=== PATIENT | male | born 1975 | race Caucasian/White ===

== ENCOUNTER 2019-06-12 19:44 | Emergency (ER) | payer SELFPAY ==
[2019-06-12 19:45] VITALS: BP 143/87; PULSE 92; RESP 16; TEMP 36.8; O2SAT 98; BMI 34.4
--- NOTE | 2019-06-12 19:53 | ED.DCSUM_ITS ---
History of Present Illness Chief Complaint: Lower Extremity Injury Informant: Patient Onset: Yesterday Narrative: Patient states that last evening he went for a walk. When he returned home began to have discomfort in the proximal anterior left thigh/hip. He states he was unable to get much sleep because of the pain. He was taking Advil. He reports whenever he moves the hip he has pain. He denies any abdominal pain. No urinary or bowel symptoms. He denies any known injury. No rashes. Past Medical History - Allergies and Home Meds Allergies/Adverse Reactions: Allergies No Known Allergies Allergy (Verified 06/12/19 19:45) Primary Care Physician: Care Physician,No Primary [Primary Care Provider] - Smoking Status: Current every day smoker Review of Systems General: Denies: Chills, Fever, Sweats Eyes: Denies: Visual changes - bilaterally, Diplopia ENT: Denies: Rhinorrhea, Sore throat Cardiovascular: Denies: Chest pain, Palpitations Respiratory: Denies: Dyspnea, Cough, Dyspnea on exertion Gastrointestinal: Denies: Abdominal pain, Nausea, Vomiting, Diarrhea, Melena, Hematochezia Genitourinary: Denies: Dysuria, Hematuria, Frequency Musculoskeletal: Reports: Extremity Pain. Denies: Back pain Skin: Denies: Rash, Wounds Neurological: Denies: Headache, Weakness, Numbness Physical Exam Vital Signs/Narrative: Vital Signs Temp Pulse Resp BP Pulse Ox 06/12/19 19:45 98.2 F 92 16 143/87 H 98 Inital Vital Signs reviewed: Yes General: Well nourished, Well developed, No Acute Distress Head: Normocephalic, Atraumatic Eyes: Perrl, EOMI ENT: Moist mucous membranes, No rhinorrhea Neck: Supple, Nontender Cardiovascular: Regular rate, Regular rhythm, No murmurs Respiratory: No distress, CTA bilaterally, Chest nontender Abdomen: Soft, Nontender, Nondistended, Normal bowel sounds Back: Nontender, Normal Inspection Extremities: No edema, Tenderness - Patient has tenderness over the left anterior proximal quadricep up onto his tendon to the AIIS and reports pain at the ASIS also. He do not see any rashes. No ecchymosis. Reports pain with any type of motion at the hip joint. Skin: Normal color, No rash Neurological: Alert, Oriented x3, Cranial nerves II-XII grossly intact, Normal Strength, Normal Sensation Psychological: Normal affect, Normal Mood Diagnostic/Tx/Re-eval - Medical Decision Making X-rays of the hip and pelvis were negative. Clinically the patient has tenderness along the quadriceps tendon. I think this is most likely a tendinitis picture. We will do anti-inflammatories I will write for a few pain medication. If is not improving follow-up with orthopedics. ED Disposition - Plan for ED Patient: Disposition: Home or Assisted Living Diagnosis: Tendinitis of left quadriceps tendon Prescriptions: Prednisone [Deltasone] 40 mg PO DAILY #10 tab Transmission Status: Pending to [facility] Ibuprofen [Motrin] 800 mg PO TID PRN PRN #20 tab PRN Reason: Pain Or Fever Transmission Status: Pending to [facility] Hydrocodone Bitart/Apap 5-325 [[place] 5MG-325MG] 1 tablet PO Q6H PRN PRN 3 Days #12 tablet PRN Reason: Pain Transmission Status: Sent to [facility] Referrals: Guanaco Salazar MD [STAFF PHYSICIAN] - 1 Week if not improving
--- NOTE | 2019-06-12 20:03 | RAD_ITS ---
STUDY: X-RAY - PELVIS AND LEFT HIP REASON FOR EXAM: Male, 43 years old. HIP PAIN SINCE YESTERDAY -- NO KNOWN INJURY TECHNIQUE: 3 views of the pelvis and hip. COMPARISON: None. FINDINGS: There is a non-specific bowel gas pattern. Normal visualized soft tissue structures. Normal bilateral iliac wings, sacroiliac joints and visualized sacrum. Normal bilateral superior and inferior pubic rami. Normal pubic symphysis. Normal bilateral ischial tuberosities. Normal visualized femoral head. Normal acetabulum. Normal hip joint. RAD/HIP, UNI W/ Pelvis 2-3 Views IMPRESSION: Normal x-ray examination of the pelvis and hip. Electronically Signed: Raeann Young MD at 20:25 EDT , Service support ,
== END 2019-06-12 20:35 | disposition home or self-care (01) ==
PROVIDERS: Emergency Provider Emergency Medicine
DX: M76.892 Other specified enthesopathies of left lower limb, excluding foot (principal); F17.200 Nicotine dependence, unspecified, uncomplicated
CPT/HCPCS: 73502; 99281; 99282

== ENCOUNTER 2019-07-01 17:12 | Emergency (ER) | payer SELFPAY ==
[2019-07-01 17:13] VITALS: BP 133/90; PULSE 102; RESP 22; TEMP 36.7; O2SAT 97; BMI 33.3
--- NOTE | 2019-07-01 17:28 | ED.DCSUM_ITS ---
- ER Visit Summary Date of Service: 07/01/19 Chief Complaint: Back pain History of Present Illness: The patient is a 43 M who presents with back pain that is been getting worse over the past 1-1/2 weeks. Patient denies any trauma or injury. Patient states the pain is been constant. Patient describes the pain as aching. Patient states pain is over the lower lumbar area. Patient states the pain is worse with movement. Patient denies any radiation to the lower extremities. Patient denies any paresthesias or weakness. Patient denies any bowel or bladder changes. Patient denies any saddle anesthesia. Physical Examination: Vital signs are stable. Patient is afebrile. Patient is in no acute distress. Musculoskeletal exam reveals tenderness and mild spasm of the lumbar paraspinal muscles. There is no midline tenderness. There is no edema or ecchymosis. There is no bony crepitance or step-off. Range of motion was slightly limited in all motion secondary to pain. Strength is 5/5 bilateral in lower extremities. Deep tendon reflexes are 2+/4 bilaterally in the lower extremities. There are no sensory deficits noted. Straight leg raises were negative bilaterally. Emergency Department Course and Treatment: Patient was given injections of Toradol and Norflex here. Patient was given prescription for Naprosyn and Flexeril. Patient was instructed to use ice to the area. Patient was referred to a primary care physician for follow-up care and further evaluation of his pain. Patient understood and was agreeable with the plan. All questions were answered. Disposition: Discharge home Impression: Lumbosacral strain This note was generated with [employer] dictation software. It may contain incorrect words, spelling, and punctuation that were not noted in review of the chart prior to signing ED Disposition - Plan for ED Patient: Disposition: Home or Assisted Living Diagnosis: Lumbosacral strain Instructions: ED LUMBAR SPRAIN/STRAIN Prescriptions: cycloBENZAPRine HCl [Flexeril] 10 mg PO QHS PRN PRN #20 tab PRN Reason: Muscle Spasm Prescription Printed Naproxen [Naprosyn] 500 mg PO BID PRN #20 tab Prescription Printed Referrals: Care Physician,No Primary [Primary Care Provider] - Marium Rosenberg MD [STAFF PHYSICIAN] - 5-7 Days
[2019-07-01] MEDS: Ketorolac 60 MG/2 ML Vial IM (17:34)
[2019-07-01] MEDS: Orphenadrine 60 MG/2 ML Ampul IM (17:34)
[2019-07-01 18:24] VITALS: BP 162/80; PULSE 62; RESP 18; O2SAT 97
== END 2019-07-01 18:25 | disposition home or self-care (01) ==
PROVIDERS: Emergency Provider Emergency Medicine
DX: S39.012A Strain of muscle, fascia and tendon of lower back, initial encounter (principal); F17.200 Nicotine dependence, unspecified, uncomplicated; E11.9 Type 2 diabetes mellitus without complications; X58.XXXA Exposure to other specified factors, initial encounter; Z79.84 Long term (current) use of oral hypoglycemic drugs
CPT/HCPCS: 96372; 99282

== ENCOUNTER 2019-07-03 11:14 | Emergency (ER) | payer SELFPAY ==
[2019-07-03] VITALS (7 sets, daily range): BP systolic 131–152; BP diastolic 77–112; PULSE 82–108; RESP 17–24; TEMP 36.2–36.6; O2SAT 92–97; BMI 33.4
--- NOTE | 2019-07-03 11:53 | EKG12_ITS ---
Test Reason : SOB Blood Pressure : / mmHG Vent. Rate : 082 BPM Atrial Rate : 082 BPM P-R Int : 122 ms QRS Dur : 086 ms QT Int : 376 ms P-R-T Axes : 038 007 009 degrees QTc Int : 439 ms Normal sinus rhythm Normal ECG Confirmed by NIURKA GUEVARA MD ([id number]), business editor GABRIELA MISHRA ([id number]) on 07/05/2019 12:52:57 PM Referred By: ZAKI Confirmed By:NIURKA GUEVARA MD
--- NOTE | 2019-07-03 11:53 | RAD_ITS ---
STUDY: X-RAY CHEST REASON FOR EXAM: Male, 43 years old. CHEST PAIN TECHNIQUE: Frontal view COMPARISON: October 15, 2015 FINDINGS: The lungs are expanded. Mild right basilar interstitial prominence. Normal size heart. Normal mediastinum and jamie. Normal visualized pulmonary arteries. Normal visualized aortic arch and descending thoracic aorta. Normal visualized thoracic spine. Normal visualized ribs, clavicles, and shoulders. There is no demonstrated abnormality of the visualized soft tissue structures of the upper abdomen. RAD/Chest 1 View (Portable) IMPRESSION: Mild right basilar interstitial prominence. Electronically Signed: Mendoza Govea DO at 12:40 EDT Tel [phone], Service support ,
[2019-07-03] MEDS: 0.9% Normal Saline 1,000 ML 150 ML IV (12:03)
[2019-07-03 12:12] LABS: Absolute Lymphocyte Count 2.66 X10^3/uL (0.83-4.51); Absolute Neutrophil Count 5.8 X10^3/uL (2.0-7.7); Basophil# 0.13 X10^3/uL; Basophil% 1.3 % (0-1); Eosinophil# 0.11 X10^3/uL; Eosinophils% 1.1 % (0-5); Hematocrit 42.5 % (40-54); Lymphocyte # 2.66 X10^3/ul (4.0); Mean Corp Hgb Conc 35.3 g/dL (32-36); Mean Corpuscular Hgb 31.9 pg (27.0-32.0); Mean Corpuscular Volume 90.4 fL (80-94); Mean Platelet Vol. 9.7 fl (6.2-12.0); Monocyte# 0.71 X10^3/uL; Monocyte% 7.2 % (0-10); NRBC Flagged by Analyzer 2.4 % (0-5); Neutrophil # 5.82 X10^3/uL (2.7-7.7); POSITIVE COUNT YES; Platelet Count 73 K/mm3 (150-450); RBC Distribution Width CV 15.2 % (11.6-14.6); RBC Distribution Width SD 48.4 fl (35.1-43.9); White Blood Count 9.9 K/mm3 (4.4-11.0)
[2019-07-03 12:27] LABS: Anion Gap 7 (5-15); BUN 14 mg/dL (7-18); BUN/Creat Ratio 27.6 RATIO (10-20); Calcium,Total 8.5 mg/dL (8.5-10.1); Chloride 101 mmol/L (98-107); Creatinine, Serum 0.51 mg/dL (0.70-1.30); EST Glomerular Filtration Rate 188 mL/min (>60); Est Glom Filt Rate - Afr Amer 227 mL/min (>60); Estimated Creatinine Clearance 159.11 ml/min; Glucose 273 mg/dL (74-106); Potassium 3.8 mmol/L (3.5-5.1); Sodium Level 135 mmol/L (136-145)
[2019-07-03] MEDS: INHALER, ASSIST DEVICES 1 EACH SPACER INHALATION (12:34)
[2019-07-03 13:09] LABS: D-Dimer Quantitative (DVT/PE) > 20.00 FEU/ug/m (0.27-0.49)
--- NOTE | 2019-07-03 13:16 | CT_ITS ---
STUDY: CTA CHEST REASON FOR EXAM: Male, 43 years old. DYSPNEA, ELEVATED D-DIMER RADIATION DOSAGE (If Supplied By Facility): CTDIvol = ( 9.10 ) mGy, DLP = ( 405.99 ) mGycm TECHNIQUE: The examination was performed with the intravenous administration of IV 100mL Isovue-370. Post-processing of the angiographic images was performed, with multiplanar reformation and 3D reconstruction. Individualized dose optimization techniques were used for this CT. COMPARISON: None. FINDINGS: Normal enhancement of the main pulmonary artery and right and left pulmonary arteries. Normal enhancement of the bilateral peripheral pulmonary arteries. There is no demonstrated pulmonary embolism. Normal thoracic aorta and visualized great vessels. There is no demonstrated aortic dissection. Normal heart and pericardium. Normal mediastinum. Right hilar adenopathy. Normal visualized trachea and bronchi. The lungs are well expanded. Mild right pleural effusion. Right suprahilar consolidation. Thickening along the right minor fissure. Reticulonodular right upper lobe interstitial prominence. Right upper lobe central 2 cm irregular nodular density and adjacent smaller nodules. Normal chest wall structures. Normal osseous structures. Normal visualized upper abdomen. CT/CTA Chest W/WO Contrast IMPRESSION: No demonstrated pulmonary embolism or arterial dissection. Mild right pleural effusion. Right suprahilar consolidation. Thickening along the right minor fissure. Reticulonodular right upper lobe interstitial prominence. Right upper lobe central 2 cm irregular nodular density and adjacent smaller nodules. Right hilar adenopathy. Electronically Signed: Mendoza Govea DO at 14:29 EDT Tel [phone], Service support ,
--- NOTE | 2019-07-03 14:59 | ED.VISSUMM ---
- ER Visit Summary Date of Service: 07/03/19 Chief Complaint: [Shortness of breath] History of Present Illness: The patient is a 43 M [presents to the emergency department shortness of breath for 2 to 3 days. Patient's had minimal cough. He complains of a headache today. He denies any fever. He does have some body aches. No known exposures to COVID-19. Patient denies recent travel or surgery. Patient is a smoker. Patient has history of diabetes as well as history of back pain. Patient's cough relatively nonproductive.] Physical Examination: [HEENT-PERRLA, EOMI. Cranial nerves II through XII grossly intact. TMs clear. Mucous membranes moist. No adenopathy. Cardiovascular-regular rate and rhythm without murmur or ectopy Lungs-few rales in the right base with some coarse breath sounds bilaterally. Patient has some faint expiratory wheezes. No accessory muscle use or retractions. Abdomen-normoactive bowel sounds, soft, nontender, no rebound or rigidity, no peritoneal signs. Extremities-intact ?4, normal range of motion, normal pulses, atraumatic] Test Results: [CBC with differential obtained showed a white count 9.9, hemoglobin 15, hematocrit 42, platelets 73. Demonstrates unremarkable. Troponin less than 0.015. EKG showed a sinus rhythm with a ventricular rate of 82 bpm. CTA of the chest obtained showed a right pleural effusion and right consolidation that is suprahilar as well as a right upper lobe nodular density measuring about 2 cm.] Emergency Department Course and Treatment: [Patient was started on Levaquin 750 mg p.o. Patient on arrival was given albuterol inhaler 4 puffs. Patient also given prednisone 40 mg p.o. I will attempt to have patient tested for COVID-19 Via [facility].] Treatment Plan: [Feel patient can be safely discharged home as he is not hypoxic or tachypneic. He looks well. Patient will be started on Levaquin as well as prednisone and will be dispensed an albuterol MDI. Patient advised to follow-up with his primary care physician within next 5 to 7 days. Patient advised to return if increasing shortness of breath or condition should worsen anyway.] Disposition: [Discharged home in stable condition] Impression: [Right upper lobe pneumonia Right upper lobe mass] This note was generated with Dragon dictation software. It may contain incorrect words, spelling, and punctuation that were not noted in review of the chart prior to signing ED Disposition - Plan for ED Patient: Referrals: Care Physician,No Primary [Primary Care Provider] -
--- NOTE | 2019-07-03 15:02 | ED.DEP ---
ED Disposition - Plan for ED Patient: Instructions: ED Upper Resp Infec Abx Tx Prescriptions: Prednisone [Deltasone] 20 mg PO BID #10 tab Prescription Printed Levofloxacin [Levaquin] 750 mg PO DAILY #7 tab Prescription Printed Referrals: Care Physician,No Primary [Primary Care Provider] - Marizol Albrihgt MD [STAFF PHYSICIAN] - 5-7 Days Additional Instructions: Follow up with primary care doctor for further evaluation of the Mass in your right lung Self Quarantine for the next 14 days or results of COVID 19 test are known
[2019-07-03] MEDS: predniSONE 20 MG Tablet 40 MG PO (15:21)
[2019-07-03] MEDS: levoFLOXacin IV 750 MG/150 ML BAG 100 MG IV (15:21)
--- NOTE | 2019-07-03 16:24 | ED.RN ---
update given to mother again- informed of discharge. appreciative.
[2019-07-03 16:34] LABS: AST(SGOT) 405 U/L (15-37); Alanine Aminotransfer ALT/SGPT 274 U/L (16-61); Albumin, Serum 1.8 g/dL (3.2-5.0); Alkaline Phosphatase 597 U/L (45-117); Bilirubin, Direct 8.74 mg/dL (0.00-0.30); Globulin 4.4 g/dL (2.2-4.2); Protein, Total 6.2 g/dL (6.4-8.2)
--- NOTE | 2019-07-03 17:24 | ED.RN ---
liver function tests resulted. Spoke with Dr. Almanza and then called pt to come back to ED. IV restarted- Rt FA #20
--- NOTE | 2019-07-03 17:37 | CT_ITS ---
STUDY: CT ABDOMEN AND PELVIS WITHOUT CONTRAST REASON FOR EXAM: Male, 43 years old. Shortness of breath. Painless jaundice. RADIATION DOSAGE (If Supplied By Facility): CTDIvol = ( 16.33 ) mGy, DLP = ( 938.31 ) mGycm TECHNIQUE: Transaxial images were obtained from the dome of the diaphragm to the symphysis pubis with oral contrast, and without intravenous contrast. Sagittal and coronal images were reconstructed. Individualized dose optimization techniques were used for this CT. COMPARISON: CT of the abdomen and pelvis, October 14, 2015. FINDINGS: The visualized lung bases are unremarkable. The visualized portions of the heart are within normal limits. Marked hepatomegaly without focal mass. Edematous gallbladder wall without filling defects. There is no intra or extrahepatic biliary ductal dilatation. There is evidence of periportal lymphadenopathy. There is mild splenomegaly. Normal pancreas. Normal bilateral adrenal glands. The right kidney is of normal size and cortical thickness. There is mild stranding of the perinephric fat and thickening of the pararenal fascial planes. No renal calculi or hydronephrosis. Normal visualized right ureter. The left kidney is of normal size and cortical thickness. There is stranding of the left perinephric fat with thickening of the left pararenal fascial planes. There is a 3 mm nonobstructing lower pole renal calculus. No hydronephrosis. Normal visualized left ureter. Normal visualized stomach. There is lymphadenopathy in the gastrohepatic ligament. There is thickened proximal small bowel wall without mass or transition point. The distal small bowel is normal. Normal colon. There is non-visualization of the appendix. Normal abdominal aorta. Normal inferior vena cava. There is stranding in all of the retroperitoneal soft tissues extending downward into the pelvis. There is no lymphadenopathy. Normal urinary bladder. Normal prostate. There is no pelvic lymphadenopathy. There is ascites most marked in the pelvis right supravesical space and bilateral subphrenic spaces. No free air within the peritoneal cavity. Mild anasarca. Normal osseous structures. CT/Abdomen/Pel W ORAL Cont Only IMPRESSION: 1. Interval enlargement although the liver without focal mass. 2. Thickened gallbladder wall thought to be secondary to associated liver disease and ascites. 3. Thickened proximal small bowel kitchen thought to be due to the ascites and liver disease. There is no evidence of obstruction. 4. Ascites. 5. Marked stranding of the retroperitoneal soft tissues not previously seen. 6. Nonobstructing left renal calculus. The UPJ calculus seen in the previous study is no longer present. 7. Otherwise stable findings. Electronically Signed: Sivakumar Osborne DO at 19:44 EDT Tel [phone], Service support ,
[2019-07-03] MEDS: 0.9% Normal Saline 1,000 ML 1000 ML IV (19:19)
--- NOTE | 2019-07-03 21:26 | ED.VISSUMM ---
- ER Visit Summary Date of Service: 07/03/19 Chief Complaint: Jaundice History of Present Illness: The patient is a 43 M with no primary care physician. He was seen in the emergency department and was found to have a right upper lobe mass and right suprahilar consolidation. He was discharged on Levaquin. It was noted that he may have some jaundice prior to discharge and he had LFTs sent. These returned and were very elevated. The patient was contacted and instructed to return to the emergency department. Patient denies any abdominal pain. He denies any nausea, vomiting, or diarrhea. He does not notice that his skin is discolored or that he has scleral icterus. He reports his urine is been dark for 2 days. He reports that he drinks alcohol occasionally. He still has his gallbladder. Patient denies any fever or chills. He reports that he has not much of a cough. Physical Examination: Vitals: Stable. Afebrile. General: Well-nourished and well-developed. Head: Normocephalic atraumatic. Neck: Supple, no lymphadenopathy. No JVD. Nontender. Cardiovascular: Regular rate and rhythm. No murmurs. Respiratory: No respiratory distress. Clear to auscultation bilaterally. Abdominal: Soft, nontender, nondistended, normal bowel sounds. No guarding, rebound, or peritoneal signs. Obvious ascites. Back: Nontender. Extremities: Nontender, no edema. Skin: Jaundice with scleral icterus. Neurologic: Alert and oriented ?3. Cranial nerves II through XII are intact. Normal strength and sensation. Psych: Normal affect. Test Results: CBC shows platelets of 73 and immature granulocytes of 4.4%. Chem-7 shows a sodium 135, glucose 273, creatinine 0.51. LFTs show total bili of 10.4 with a direct bili of 8.74, alk phos of 597, ALT of 274, AST of 405, total protein 6.2, albumin of 1.8, globulin 4.4. Clinical Impression(s) from Imaging Studies Chest X-Ray 07/03/19 11:53 IMPRESSION: Mild right basilar interstitial prominence. Electronically Signed: Mendoza Govea DO at 12:40 EDT Tel [phone], Service support , Chest CTA 07/03/19 13:16 IMPRESSION: No demonstrated pulmonary embolism or arterial dissection. Mild right pleural effusion. Right suprahilar consolidation. Thickening along the right minor fissure. Reticulonodular right upper lobe interstitial prominence. Right upper lobe central 2 cm irregular nodular density and adjacent smaller nodules. Right hilar adenopathy. Electronically Signed: Mendoza DO Jeferson at 14:29 EDT Tel [phone], Service support , Abdomen CT 07/03/19 17:37 IMPRESSION: 1. Interval enlargement although the liver without focal mass. 2. Thickened gallbladder wall thought to be secondary to associated liver disease and ascites. 3. Thickened proximal small bowel kitchen thought to be due to the ascites and liver disease. There is no evidence of obstruction. 4. Ascites. 5. Marked stranding of the retroperitoneal soft tissues not previously seen. 6. Nonobstructing left renal calculus. The UPJ calculus seen in the previous study is no longer present. 7. Otherwise stable findings. Electronically Signed: Sivakumar Osborne, at 19:44 EDT Tel [phone], Service support , Emergency Department Course and Treatment: Patient is resting comfortably. He refused pain or nausea medications. He is Calderon had a dose of Levaquin earlier today. Treatment Plan: Patient was discussed with Dr. Aggarwal. She reviewed his labs and imaging and asked that he be transferred to a tertiary care center with a sr risk management consultant. Patient was initially discussed with [facility] and [facility]. They do not have any liver specialist. He was discussed with Dr. Foster at [facility] who is accepted him in transfer. Disposition: Transferred in serious condition. Impression: 1. Painless jaundice. 2. Right upper lobe mass. 3. Right suprahilar consolidation. 4. Thrombocytopenia. This note was generated with [employer] software. It may contain incorrect words, spelling, and punctuation that were not noted in review of the chart prior to signing ED Disposition - Plan for ED Patient: Instructions: ED Upper Resp Infec Abx Tx Prescriptions: Prednisone [Deltasone] 20 mg PO BID #10 tab Prescription Printed Levofloxacin [Levaquin] 750 mg PO DAILY #7 tab Prescription Printed Referrals: Marizol Albright MD [STAFF PHYSICIAN] - 5-7 Days Care Physician,No Primary [Primary Care Provider] - Additional Instructions: Follow up with primary care doctor for further evaluation of the Mass in your right lung Self Quarantine for the next 14 days or results of COVID 19 test are known
--- NOTE | 2019-07-03 22:39 | ED.RN ---
called mother for update on pt status.
== END 2019-07-03 22:40 | disposition short-term general hospital (02) ==
PROVIDERS: Emergency Medicine; Emergency Provider Emergency Medicine
DX: R17 Unspecified jaundice (principal); R91.8 Other nonspecific abnormal finding of lung field; J18.1 Lobar pneumonia, unspecified organism; D69.6 Thrombocytopenia, unspecified; E11.9 Type 2 diabetes mellitus without complications; Z79.84 Long term (current) use of oral hypoglycemic drugs; Z79.899 Other long term (current) drug therapy; F17.210 Nicotine dependence, cigarettes, uncomplicated
CPT/HCPCS: 71045; 71275; 74176; 80048; 80076; 84484; 85025; 85379; 87635; 93005; 94640; 96361; 96365; 99285; G2023; J7030; Q9967; A4216; U0004